=== PATIENT | female | born 1940 | race Caucasian/White ===

== ENCOUNTER 2024-03-01 09:16 | Day surgery (SDC) | payer MEDICARE, OTHER, SELFPAY ==
--- NOTE | 2024-03-01 10:47 | ITS.CL.CARDI ---
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
Cardioversion
Procedure Report:
Procedure: Direct current electrical cardioversion
Pre-operative diagnosis: Persistent atrial fibrillation
Post-operative diagnosis: Persistent atrial fibrillation status post DC cardioversion to sinus rhythm
Anesthesia: MAC
Attending Physician: Pankaj Jennings MD
Procedure Description: The patient was brought to the electrophysiology laboratory in the fasting state. Adherence to anticoagulation regimen was confirmed. Informed consent was obtained from the patient prior to the start of the procedure.
Electrodes were placed on the patient and connected to an external defibrillator. Monitoring of blood pressure, ECG tracings, and pulse oximetry was initiated. The pads were applied to the patient in the anterior and posterior positions. The patient
was sedated by the anesthesiologist. A 200 joule biphasic synchronized shock was delivered to the patient under MAC anesthesia. Sinus rhythm was successfully restored. The patient recovered uneventfully from MAC anesthesia. There were no immediate
post-procedure complications. The patient left the lab in good condition. The attending physician was present throughout the entire procedure.
Impression: Successful direct current cardioversion with cheondoism of sinus rhythm after one 200 joule biphasic synchronized shock.
== END 2024-03-01 11:22 | disposition home or self-care (01) ==
LOC: CATH 09:16
PROVIDERS: ATTENDING PHYSICIAN Internal Medicine Cardiovascular Disease; FAMILY PHYSICIAN Family Medicine; OTHER PHYSICIAN Internal Medicine Cardiovascular Disease
DX: I48.19 Other persistent atrial fibrillation (principal); I50.32 Chronic diastolic (congestive) heart failure; G47.33 Obstructive sleep apnea (adult) (pediatric); Z87.891 Personal history of nicotine dependence; Z79.01 Long term (current) use of anticoagulants
CPT/HCPCS: 92960; 93005

== ENCOUNTER 2024-05-02 11:01 | Observation (INO) | payer MEDICARE, OTHER, SELFPAY ==
[2024-04-23 12:01] VITALS: BMI 39.9
[2024-05-02] VITALS (18 sets, daily range): BP systolic 104–145; BP diastolic 57–99; BMI 40.5
[2024-05-02] MEDS: TYLENOL 1000 MG PO (07:16)
[2024-05-02 08:49] LABS: ACT-LR - POC 295 Seconds (116-155)
[2024-05-02 09:01] LABS: ACT-LR - POC 274 Seconds (116-155)
--- NOTE | 2024-05-02 09:19 | ITS.CL.ABL ---
[employer] - Ablation
Ablation
Procedure Report:
ELECTROPHYSIOLOGY ABLATION STUDY
�
DATE:: 05/02/2024�����������������������������REFERRING: Dr. Monroe Arndt
�
INDICATION: Persistent supraventricular tachycardia in the form of atrial fibrillation.��Prior history of pulmonary vein isolation and recent cardiac arrest status post dual-chamber ICD implantation at [facility] in January 2024 (biotronik)
�
HISTORY: See H and P.��Symptomatic persistent atrial fibrillation associated with diastolic heart failure and dyspnea on exertion despite amiodarone therapy
�
ANTIARRHYTHMIC DRUG: Amiodarone
�
PRE-PROCEDURE LU: No intracardiac thrombus on intracardiac ultrasound
�
PRESENTING RHYTHM: Atrial fibrillation
�
'TIME-OUT':��called and confirmed.
�
SEDATION/ANESTHESIA:��provided via the anesthesia department using general anesthesia (LMA).
�
INTRAVENOUS/ARTERIAL ACCESS:
Right femoral venous - 8Fr
Left femoral venous - 8 Fr, 6 Fr
[id number] closure was utilized
Ultrasound guidance for bilateral femoral vein access was utilized by me to obtain access with demonstration of normal anatomy
CHADS-VASC Score:
�
HAS-Bled Score
�
PROCEDURE:
1.��A decapolar CS catheter was placed within the CS for mapping and pacing.��This was also used as the reference catheter for the 3-D map. At the beginning of the procedure the Biotronik dual-chamber ICD was interrogated and reprogrammed with
therapies off for the duration of the procedure and at the end of the procedure ICD therapies were turned back on. The device was reprogrammed to DDD�CLS 6130 bpm at the end of the procedure with the programmed AV delay of 230 ms. Leads were in
stable position post procedure
�
2. The intracardiac ultrasound catheter was positioned in the RA to identify the FO for targeting of transseptal puncture, assist��in identification of the pulmonary vein ostia, monitoring pre and post ablation pulmonary vein flow velocities,
monitoring for 'bubble' formation during RF application as a sign of thermal injury,��and to monitor for pericardial effusion during mapping and ablation procedure.���Left atrial size, LV ejection fraction, and pulmonary vein flows were monitored
pre and post ablation procedure. The other valves were inspected and found to be free of significant regurgitation or stenosis.
�
3.��Half of the calculated heparin bolus was administered prior to the first transeptal puncture.��Transseptal puncture was performed to diagnose RA and LA pressure so that safetey of LA mapping and ablation could be further assessed, and to access
the left atrium and pulmonary veins for mapping and ablation.��This entailed advancing an 16.8 Amharic sheath, RF wire and dilator into the superior vena cava and withdrawing both (monitoring intracardiac ultrasound, fluoroscopy and tip pressure)
with the tip oriented toward the atrial septum.��The fossa ovalis was engaged (indicated by sudden displacement of the sheath tip as well as tenting of the fossa seen on intracardiac ultrasound).��Left atrial access required a pass with the
Brockenbrough needle extended.��Left atrial catheter position was confirmed by pressure monitoring (RA mean pressure 8 mm Hg and LA mean presure 14 mm Hg), LA saturation (99%),��as well as fluoroscopy.��The sheath was advanced over the dilator and
positioned in the left atrium.��This procedure was repeated for the Agilis sheath.��The remainder of the calculated heparin bolus was administered and heparin was
infused to maintain ACT at 300 -350 seconds throughout the case.
�
4.��RA pacing was performed via the proximal decapolar poles and LA pacing was performed via the distal decapolar poles.
�
5. A quadrapolar catheter was first positioned at the His position for His Bundle recording which was tagged via the 3-D Navex sytem, and then passed to the RVA for RV pacing and recording.
�
6. The multipolar catheter and the Marcela wave catheter were placed in each of the LIPV, LSPV, RSPV and the RIPV.��There was a focal area of reconnection in the antrum and the posterior region of the right inferior pulmonary vein but the vein was
isolated ostially. Each of the other veins were isolated in wide augustine fashion.
�
7.��Next, a 3-D map was created using Navex.���A 3-D reconstructed CT image was compared to the 3-D Navex map to assist in anatomic interpretation, mapping and ablation.��The CT image and the NavX image were fused.
�
8. Utilizing a total of 54 lesions basket poses were given to the left superior pulmonary vein and left inferior pulmonary vein and the posterior antra and Bradshaw and basket poses were given to the right inferior pulmonary vein. Flower pose was
utilized in the posterior wall from the roof to the floor and the patient was cardioverted to sinus rhythm. Entrance and exit block was confirmed in all 4 pulmonary veins and the left atrial posterior wall from roof to the floor. There was no
other inducible tachyarrhythmia notable.
9. The patient's device was reprogrammed as above with ICD therapies on at the end of the procedure with DDD�CLS. Normal sinus node function was noted at cardioversion.
�
PULMONARY VEIN FLOW VELOCITIES:
TOTAL FLOURO TIME: 14 minutes
�
TOTAL RF DURATION: 0 minutes
�
REVERSAL OF HEPARIN: 35 mg of protamine, slow IV administration
�
COMPLICATIONS:
None
Intracardiac US shows no pericardial effusion post ablation.
�
SUMMARY:��
Complex left atrial mapping and ablation.
Isolation of the right inferior pulmonary vein at the antra and posterior wall isolation from roof to floor of the left atrial posterior wall.
�
RECOMMENDATIONS:
1. Admit to monitored bed.
2. Resume anticoagulation
3.��Continue amiodarone 200 mg daily
4.��Out of bed in 4 hours
�
Copy to: Dr. Richard Arndt
�
[2024-05-02] MEDS: LASIX 40 MG PO (10:18)
[2024-05-02] MEDS: PACERONE 200 MG PO (10:19)
[2024-05-02] MEDS: TOPROL XL 12.5 MG PO (10:19)
--- NOTE | 2024-05-02 12:18 | PTCARENOTE ---
Pt received post procedure at 1120. Pt alert and oriented. Denies any pain or discomfort. Room air sat 97%. Bilateral groin dressing sites soft, dry and intact.
--- NOTE | 2024-05-02 15:06 | CM ---
CM following for DC planning needs.
Met w/ patient to complete initial assessment.
Pt. resides in a private, 1 story home alone. She is functionally indep. w/ ADLs, mobility with use of a SPC.
She anticipates DC to home tomorrow and states that her son will transport home.
Pharmacy is [facility] on [address] in [place].
Anticipate DC to home without needs.
Will remain avail.
--- NOTE | 2024-05-02 17:40 | W.PN.UPDATE ---
Update Note
Progress Note Update
Patient seen and examined postoperatively.
She is awake alert and sitting up in her chair.
Sinus rhythm on telemetry. Bilateral groins are clean dry and intact.
Appropriate atrial pacing on telemetry
If she has an uneventful evening she will be stable for discharge in the morning on 05/03/2024 and she has follow-up arranged with me in the office as directed.
Her discharge summary is dictated and will only need an addendum of overnight course.
Discharge paperwork is largely completed and will just need medications finalized and the discharge order placed.
[2024-05-02] MEDS: XARELTO 20 MG PO (18:25)
[2024-05-02] MEDS: LIPITOR 10 MG PO (18:26)
--- NOTE | 2024-05-03 00:08 | PTCARENOTE ---
Pt received start of shift, HR mostly a-paced with underlying sinus rhythm. B/l groin site dressings CDI. Sites soft, no hematomas. Pt ambulating by self in room w/ cane. Updated pt on plan of care, pt states understanding. Pt denies any CP, SOB, or
lightheadedness/dizziness. Informed to notify RN if any changes, call arteaga within reach.
[2024-05-03 04:07] VITALS: BP 129/79
[2024-05-03] MEDS: TYLENOL 650 MG PO (04:10)
[2024-05-03] MEDS: ANESTHETIC LOZENGE 1 LOZENGE PO (04:30)
[2024-05-03 04:34] VITALS: BMI 40.2
[2024-05-03 05:18] LABS: Hematocrit 37.2 % (37.0-47.0); Hemoglobin 12.2 g/dL (12.0-16.0); Mean Corp Hgb Conc. 32.8 g/dL (33.0-37.0); Mean Corpuscular Hgb 29.9 pg (27.0-31.0); Mean Corpuscular Volume 91.2 fL (81.0-99.0); Mean Platelet Volume 10.9 fL (7.4-10.4); Platelet Count 145 10^3/uL (130-400); Red Blood Cell Count 4.08 10^6/uL (4.20-5.40); Red Cell Dist. Width 12.6 % (11.5-14.5); White Blood Cell Count 9.9 10^3/uL (4.8-10.8)
[2024-05-03] MEDS: SYNTHROID 25 MCG PO (05:29)
[2024-05-03 05:38] LABS: Blood Urea Nitrogen 36 mg/dl (7-17); Calcium 9.4 mg/dl (8.4-10.2); Carbon Dioxide 26 mmol/L (22-30); Chloride 102 mmol/L (98-107); Estimated Creatinine Clearance 40 ml/min; Glucose 125 mg/dl (70-99); Potassium 4.4 mmol/L (3.5-5.1); Sodium 140 mmol/L (135-145); eGFR 45.19
[2024-05-03 08:07] VITALS: BP 115/102
[2024-05-03 08:08] VITALS: BP 126/58
[2024-05-03] MEDS: TOPROL XL 12.5 MG PO (08:45)
[2024-05-03] MEDS: PACERONE 200 MG PO (08:45)
[2024-05-03 11:36] VITALS: BP 113/74
--- NOTE | 2024-05-03 11:59 | W.PN.CARDCBS ---
Today's Communication / Plan
-
Okay for discharge
Impression / Plan
-
Impression:
Status post PVI 05/02/24
History of prior PVI in 2015
Cardiac arrest secondary to dofetilide in 2019
No obstructive CAD
Hypertension
Hyperlipidemia
Hypothyroidism
Obstructive sleep apnea
Obesity
Plan:
Stable from cardiac standpoint, okay for discharge.
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
Subjective
Date of Service: May 03, 2024:
113/74, pulse 63, respirate 18, head neck exam unremarkable lungs are clear, regular rate and rhythm, soft systolic murmur, JVD okay, abdomen benign, groins intact, no edema
EKG atrially paced rhythm with prolonged AV conduction, possible inferior infarct, top normal QT
Hemoglobin 12.2, BUN and creatinine 36 and 1.2
Objective
Labs:
05/03/24 04:16
05/03/24 04:16
Labs
Hgb 12.2 g/dL (12.0-16.0) 05/03/24 04:16
Hct 37.2 % (37.0-47.0) 05/03/24 04:16
Plt Count 145 10^3/uL (130-400) 05/03/24 04:16
Sodium 140 mmol/L (135-145) 05/03/24 04:16
Potassium 4.4 mmol/L (3.5-5.1) 05/03/24 04:16
BUN 36 mg/dl (7-17) H 05/03/24 04:16
Creatinine 1.2 mg/dL (0.6-1.0) H 05/03/24 04:16
Glucose 125 mg/dl (70-99) H 05/03/24 04:16
Vital Signs and I&O:
Vital Signs
Temp Pulse Resp BP Pulse Ox
36.6 C 62 18 126/58 92
05/03/24 11:34 05/03/24 08:30 05/03/24 11:34 05/03/24 08:08 05/03/24 11:34
Vital Signs
Temp Pulse Resp BP Pulse Ox
36.6 C 62 18 126/58 92
05/03/24 11:34 05/03/24 08:30 05/03/24 11:34 05/03/24 08:08 05/03/24 11:34
Intake & Output
05/01/24 05/02/24 05/03/24 05/04/24
07:59 07:59 07:59 07:59
Intake Total 1140 / 1140 240 / 240
Balance 1140 / 1140 240 / 240
Physical Exam
Physical Exam
See above
--- NOTE | 2024-05-03 12:25 | W.DS.TRANS ---
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
-
Discharge Instructions:
Discharge Diagnosis/Procedures PVI/LAPW isolation 05/02/2024
Diet No restrictions,Low Cholesterol,Low Sodium
Activity No restrictions
Driving Restrictions No driving for 24 hours
Bathing Restrictions None
Instructions:
Stand-Alone Forms: DC Instructions- Cath/EP Lab
Changes to Home Medications: No
Discharge Medications:
DC Medications w/original date entered in [email or web address]
levothyroxine 25 mcg tablet 25 mcg PO DAILY Thyroid 04/23/16
lovastatin 20 mg tablet 20 mg PO QPM High cholesterol 04/23/16
rivaroxaban 20 mg tablet (Xarelto) 20 mg PO QPM Blood clot prevention/tx 04/23/16
fluticasone propionate 50 mcg/actuation nasal spray,suspension 1 spray intranasal DAILY PRN sinus congestion 04/26/16
furosemide 40 mg tablet 20 mg PO SUTUTHSA Fluid retention/Swelling 10/24/19
furosemide 40 mg tablet 40 mg PO MOWEFR Fluid retention/Swelling 10/24/19
metoprolol succinate 25 mg tablet,extended release 24 hr 12.5 mg (1/2 x 25 mg) PO DAILY ##30 03/04/20
acetaminophen 500 mg capsule 500 - 1,000 mg PO Q6H PRN pain 04/19/24
amiodarone 200 mg tablet 200 mg PO DAILY 04/19/24
Home Medication Changes
Pending Results: No
--- NOTE | 2024-05-03 13:31 | PTCARENOTE ---
Pt seen by . Telemetry and IV device removed. Discharge instructions reviewed with pt and her son regarding activity and driving guidelines, wound care, medications and their possible side effects, CHF guidelines ,reporting cares and
concerns and follow up appt's. Very good understanding taught back. Pt escorted out via wheelchair and discharged to home.
== END 2024-05-03 13:25 | disposition home or self-care (01) ==
LOC: IVU 11:01
PROVIDERS: ADMITTING PHYSICIAN Internal Medicine Cardiovascular Disease; FAMILY PHYSICIAN Family Medicine
DX: I48.19 Other persistent atrial fibrillation (principal); I10 Essential (primary) hypertension; E78.5 Hyperlipidemia, unspecified; E66.9 Obesity, unspecified; E03.9 Hypothyroidism, unspecified; G47.33 Obstructive sleep apnea (adult) (pediatric); Z68.41 Body mass index [BMI] 40.0-44.9, adult; Z79.01 Long term (current) use of anticoagulants; Z79.899 Other long term (current) drug therapy; Z86.74 Personal history of sudden cardiac arrest; Z95.810 Presence of automatic (implantable) cardiac defibrillator
CPT/HCPCS: 80048; 85027; 85347; 93005; 93656; 93657; C1730; C1732; C1733; C1759; C1766; C1769; C1892; C1894; G0378

== ENCOUNTER 2024-08-10 09:42 | Day surgery (SDC) | payer MEDICARE, OTHER, SELFPAY ==
--- NOTE | 2024-08-10 13:04 | ITS.CL.CARDI ---
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
Cardioversion
Procedure Report:
Date of Procedure: 08/10/2024
Procedure: Cardioversion
Indication: Symptomatic atrial fibrillation
Performing Physician: Regina Bazan DO [facility]
Technique: The patient was brought to the holding area. Signed informed consent was obtained. A time out was called and performed. The patient was anesthetized by the anesthesia service. Anticoagulation status was reviewed and appropriate. Rhythm
was confirmed with the assistance of [employer] sales representative electric service and device interrogation R2 pads were placed anteriorly and posteriorly. A 200J J synchronized biphasic shock restored normal sinus rhythm without significant bradycardia. There were no
complications.
Conclusion: Uncomplicated cardioversion from atrial fibrillation to sinus rhythm.
Recommendation: Routine post cardioversion care. Continue long term care administrator anticoagulation.
== END 2024-08-10 11:08 | disposition home or self-care (01) ==
LOC: CATH 09:42
PROVIDERS: ATTENDING PHYSICIAN Internal Medicine Cardiovascular Disease; FAMILY PHYSICIAN Family Medicine; OTHER PHYSICIAN Internal Medicine Cardiovascular Disease
DX: I48.19 Other persistent atrial fibrillation (principal); I10 Essential (primary) hypertension; E78.5 Hyperlipidemia, unspecified; E03.9 Hypothyroidism, unspecified; G47.33 Obstructive sleep apnea (adult) (pediatric); Z79.01 Long term (current) use of anticoagulants; Z87.891 Personal history of nicotine dependence
CPT/HCPCS: 92960; 93005